=== PATIENT | male | born 1950 | race American Indian/Alaskan Native ===

== ENCOUNTER 2018-03-05 20:20 | Emergency (ER) | payer BC, MEDICARE ==
--- NOTE | 2018-03-05 22:28 | Cat Scan Report ---
FINAL REPORT PROCEDURE: CT HEAD/BRAIN WO CON TECHNIQUE: Computerized tomography of the head was performed without contrast material. HISTORY: Lg hematoma L eye s/p GLF COMPARISON: No prior studies are available for comparison. FINDINGS: Brain: There is no evidence of intracranial hemorrhage. No parenchymal hemorrhage is seen. No mass lesions or mass effect is identified. No abnormal extra-axial fluid collections or masses are seen. Nonspecific mineralization of the basal ganglia are visualized bilaterally. There is some decreased density seen in the periventricular white matter without mass effect. This i s fairly symmetric and does not exhibit any mass effect consistent with gliosis probably on the basis of microvascular disease or white matter changes of aging. Ventricles: The ventricles, sulcal pattern and fissures are prominent consistent with atrophy. Bones: No evidence of acute fracture. Large amount of soft tissue swelling seen overlying the left or bit and left side of the forehead. Large hematoma appears to be present. Paranasal sinuses: Visualized portions are clear. Mastoid air cells: clear IMPRESSION: Soft tissue swelling and hematoma formation seen overlying the left orbit and left side of the forehe ad. No evidence of intracranial hemorrhage or skull fracture. There is evidence of mild to moderate atrophy and mild gliosis.
--- NOTE | 2018-03-05 22:33 | Cat Scan Report ---
FINAL REPORT PROCEDURE: CT FACIAL BONES WO CON TECHNIQUE: Computerized tomography of the facial bones and soft tissues with axial and coronal secti ons performed from the cranial aspect of the frontal sinuses to the caudal portion of the mandible wi thout contrast material. HISTORY: Lg hematoma L eye s/p GLF COMPARISON: No prior studies are available for comparison. FINDINGS: No facial fractures are identified. The orbits, the nasal bone, the zygomas and zygomatic arches as w ell as the giraldo of the paranasal sinuses and mandible are intact. Large scalp hematoma and soft tiss ue swelling seen overlying the left orbit and left side of the forehead. No radiopaque foreign bodies are seen. Paranasal sinuses are clear. Calcifications are seen in the giraldo of the carotid arteries indicating atherosclerotic disease. There is advanced degenerative disc changes and facet arthritis partially visualized in the cervical spine. No fracture is identified. There is minimal anterior subluxation C2 in relation to C3, approxi mately 2.5 millimeters.. IMPRESSION: No facial fractures are identified. Large hematoma and soft tissue swelling seen overlying the left o rbit and left side of the forehead. Atherosclerosis carotid arteries. Advanced degenerative disc changes visualized upper cervical spine. The entire cervical spine is not visualized. No definite fracture is seen. There is minimal anterior subluxation C2 in relation to C3, approximately 2.5 millimeters.
--- NOTE | 2018-03-05 23:32 | Emergency Department Report ---
ED General Adult HPI - General Chief complaint: Fall Stated complaint: FALL LT FOREHEAD Time Seen by Provider: 03/05/18 23:04 Source: patient Mode of arrival: Ambulatory Limitations: No Limitations - History of Present Illness Initial comments: 68-year-old male with a history of hypertension and rheumatoid arthritis presents after suffering a ground-level fall after stating that he slipped on pine strawand fell to the ground. Patient also admits to alcohol use prior to this fall. Patient denies any other coingestants. Patient states that he had no chest pain, dizziness or shortness of breath prior to the fall. Patient states that he has no pain in his upper or lower extremities. Patient denies any neck pain. Patient denies any eye pain or visual loss. Patient states that fall occurred at 430 pm. Patient denies any other falls since that time and states that he currently feels fine. - Related Data Previous Rx's Medication Instructions Recorded Last Taken Type traMADol [Ultram] 50 mg PO Q6HR PRN #20 tablet 03/05/18 Unknown Rx Allergies Allergy/AdvReac Type Severity Reaction Status Date / Time No Known Allergies Allergy Unverified 03/05/18 20:46 ED Review of Systems ROS: Stated complaint: FALL LT FOREHEAD Other details as noted in HPI Constitutional: denies: chills, fever Eyes: denies: eye pain, eye discharge, vision change ENT: denies: ear pain, throat pain Respiratory: denies: cough, shortness of breath, wheezing Cardiovascular: denies: chest pain, palpitations Endocrine: no symptoms reported Gastrointestinal: denies: abdominal pain, nausea, diarrhea Genitourinary: denies: urgency, dysuria Musculoskeletal: denies: back pain, joint swelling, arthralgia Skin: denies: rash, lesions Neurological: headache Psychiatric: denies: anxiety, depression Hematological/Lymphatic: denies: easy bleeding, easy bruising ED Past Medical Hx - Past Medical History Previous Medical History?: Yes Hx Hypertension: Yes Hx Diabetes: Yes Hx Arthritis: Yes (rheumatoid) - Surgical History Past Surgical History?: No - Social History Smoking Status: Light Tobacco Smoker Substance Use Type: Alcohol, Marijuana - Medications Home Medications: Home Medications Medication Instructions Recorded Confirmed Last Taken Type traMADol [Ultram] 50 mg PO Q6HR PRN #20 tablet 03/05/18 Unknown Rx ED Physical Exam - General Limitations: No Limitations General appearance: alert, in no apparent distress - Head Head exam: Present: normocephalic, other (Swelling noted to Left Frontal Region of Head) - Eye Eye exam: Present: normal appearance, PERRL, EOMI, other (Visual acuity in left eye is 20/50; no pain to palpation of the orbit or eyelid region; NO hyphema). Absent: conjunctival injection Pupils: Present: normal accommodation - ENT ENT exam: Present: mucous membranes moist - Neck Neck exam: Present: normal inspection - Respiratory Respiratory exam: Present: normal lung sounds bilaterally. Absent: respiratory distress - Cardiovascular Cardiovascular Exam: Present: regular rate, normal rhythm. Absent: systolic murmur, diastolic murmur, rubs, gallop - GI/Abdominal GI/Abdominal exam: Present: soft, normal bowel sounds - Rectal Rectal exam: Present: deferred - Extremities Exam Extremities exam: Present: normal inspection - Back Exam Back exam: Present: normal inspection - Neurological Exam Neurological exam: Present: alert, oriented X3 - Psychiatric Psychiatric exam: Present: normal affect, normal mood - Skin Skin exam: Present: warm, dry, intact, normal color, other (abrasions noted to left head of metacarpal 2-4). Absent: rash ED Course Vital Signs 03/05/18 03/05/18 20:32 20:36 Temperature 98.7 F Pulse Rate 96 H Respiratory 18 18 Rate Blood Pressure 169/119 169/119 O2 Sat by Pulse 99 Oximetry ED Medical Decision Making - Medical Decision Making Using a Snellen chart patient's visual acuity is 20/50 in the left eye. Patient has no pain with extraocular movement. Patient currently is asymptomatic at then time. Patient called family to come and pick the patient up. Patient is fully conversational and is oriented to person place and time. Patient has had no vision loss and injury occurred at 430 pm today. Patient instructed to continue ice and we'll give him Ultram for when necessary pain relief. - Differential Diagnosis Intracranial Injury; Hemorrhage; Skull Fracture; Facial Fracture Critical care attestation.: If time is entered above; I have spent that time in minutes in the direct care of this critically ill patient, excluding procedure time. ED Disposition Clinical Impression: Scalp hematoma, Fall, Alcohol abuse Disposition: DC-01 TO HOME OR SELFCARE Is pt being admited?: No Condition: Stable Instructions: Contusion in Adults (ED), Fall Prevention (ED) Prescriptions: traMADol [Ultram] 50 mg PO Q6HR PRN #20 tablet PRN Reason: Pain Referrals: ANIKET CHEUNG MD [Primary Care Provider] - 3-5 Days Time of Disposition: 23:37 Print Language: BAHAMIAN
[2018-03-06 02:59] VITALS: BP 157/98
== END 2018-03-06 02:58 | disposition home or self-care (01) ==
LOC: ED 20:20
DX: S00.03XA Contusion of scalp, initial encounter (principal); I10 Essential (primary) hypertension; E11.9 Type 2 diabetes mellitus without complications; F17.200 Nicotine dependence, unspecified, uncomplicated; F12.10 Cannabis abuse, uncomplicated; W18.30XA Fall on same level, unspecified, initial encounter; Y93.89 Activity, other specified; Y92.89 Other specified places as the place of occurrence of the external cause; Y99.8 Other external cause status
CPT/HCPCS: 70450; 70486

== ENCOUNTER 2018-10-11 10:01 | Emergency (ER) | payer MEDICARE ==
--- NOTE | 2018-10-11 11:51 | Emergency Department Report ---
ED Fall HPI - General Chief Complaint: Fall Stated Complaint: POSS CONCUSION Time Seen by Provider: 10/11/18 11:16 Source: patient Mode of arrival: Ambulatory Limitations: No Limitations - History of Present Illness Initial Comments: 68-year-old male male with a past medical history rheumatoid arthritis, diet controlled diabetes, and hypertension presents to the hospital with complaints of frequent falls. Last fall was 3 weeks ago. At this time patient was on 6 different medications for his blood pressure. Patient states that the medication caused him to feel dizzy therefore he discontinue the medication 3 weeks ago. He has not followed up with his primary care doctor. He was not evaluated in the ED for this fall. He presents to the ER to be "checked out" due to the insistence of his family members. Patient denies any pain, shortness breath, or unsteady gait currently. - Related Data Previous Rx's Medication Instructions Recorded Last Taken Type traMADol [Ultram] 50 mg PO Q6HR PRN #20 tablet 03/05/18 Unknown Rx Allergies Allergy/AdvReac Type Severity Reaction Status Date / Time No Known Allergies Allergy Verified 10/11/18 10:03 ED Review of Systems ROS: Stated complaint: POSS CONCUSION Other details as noted in HPI Comment: All other systems reviewed and negative ED Past Medical Hx - Past Medical History Hx Hypertension: Yes Hx Diabetes: Yes Hx Arthritis: Yes (rheumatoid) - Social History Smoking Status: Current Every Day Smoker Substance Use Type: Alcohol - Medications Home Medications: Home Medications Medication Instructions Recorded Confirmed Last Taken Type traMADol [Ultram] 50 mg PO Q6HR PRN #20 tablet 03/05/18 Unknown Rx ED Physical Exam - General Limitations: No Limitations - Other Other exam information: General: No acute distress Head: Atraumatic Eyes: Normal appearance, Pupils equal and reactive to light, extraocular movements intact ENT: Normal oropharynx Neck: Normal appearance, no posterior or midline tenderness, no meningismus Chest: Clear to auscultation bilaterally, no wheezes, rales, or crackles CV: Regular rate and rhythm Abdomen: soft, normal bowel sounds, nontender, nondistended, no rebound or guarding Back: Nontender Extremity: Normal inspection, full range of motion, nontender Neuro: Alert and oriented 3, speech clear, no gross motor or sensory deficit, [id number] function intact, gait steady Skin: No rash, redness, warmth ED Course Vital Signs 10/11/18 10/11/18 10:10 13:37 Temperature 97.7 F Pulse Rate 84 88 Respiratory 16 16 Rate Blood Pressure 170/102 Blood Pressure 149/96 [Left] O2 Sat by Pulse 100 100 Oximetry ED Medical Decision Making - Lab Data Result diagrams: 10/11/18 12:14 10/11/18 12:14 Lab Results 10/11/18 10/11/18 10/11/18 Range/Units 11:53 12:14 12:14 WBC 2.7 L (4.5-11.0) K/mm3 RBC 3.49 L (3.65-5.03) M/mm3 Hgb 11.4 L (11.8-15.2) gm/dl Hct 33.6 L (35.5-45.6) % MCV 97 H (84-94) fl MCH 33 H (28-32) pg MCHC 34 (32-34) % RDW 15.9 H (13.2-15.2) % Plt Count 205 (140-440) K/mm3 Lymph % (Auto) 34.0 (13.4-35.0) % Bacon % (Auto) 10.3 H (0.0-7.3) % Eos % (Auto) 0.6 (0.0-4.3) % Baso % (Auto) 1.3 (0.0-1.8) % Lymph # 0.9 L (1.2-5.4) K/mm3 Bacon # 0.3 (0.0-0.8) K/mm3 Eos # 0.0 (0.0-0.4) K/mm3 Baso # 0.0 (0.0-0.1) K/mm3 Seg Neutrophils % 53.8 (40.0-70.0) % Seg Neutrophils # 1.5 L (1.8-7.7) K/mm3 Sodium 141 (137-145) mmol/L Potassium 4.7 (3.6-5.0) mmol/L Chloride 100.1 (98-107) mmol/L Carbon Dioxide 26 (22-30) mmol/L Anion Gap 20 mmol/L BUN 13 (9-20) mg/dL Creatinine 0.6 L (0.8-1.5) mg/dL Estimated GFR > 60 ml/min BUN/Creatinine Ratio 22 % Glucose 71 L (75-100) mg/dL Calcium 9.5 (8.4-10.2) mg/dL Total Bilirubin 0.60 (0.1-1.2) mg/dL AST 56 H (5-40) units/L ALT 24 (7-56) units/L Alkaline Phosphatase 95 (35-129) units/L Total Protein 8.0 (6.3-8.2) g/dL Albumin 4.5 (3.9-5) g/dL Albumin/Globulin Ratio 1.3 % Urine Color Yellow (Yellow) Urine Turbidity Clear (Clear) Urine pH 6.0 (5.0-7.0) Ur Specific [place] 1.009 (1.003-1.030) Urine Protein <15 mg/dl (Negative) mg/dL Urine Glucose (UA) Neg (Negative) mg/dL Urine Ketones Neg (Negative) mg/dL Urine Blood Neg (Negative) Urine Nitrite Neg (Negative) Urine Bilirubin Neg (Negative) Urine Urobilinogen < 2.0 (<2.0) mg/dL Ur Leukocyte Esterase Neg (Negative) Urine WBC (Auto) < 1.0 (0.0-6.0) /HPF Urine RBC (Auto) 1.0 (0.0-6.0) /HPF - Radiology Data Radiology results: report reviewed CT head/brain wo con INDICATION: frequent falls. TECHNIQUE: Routine CT head without contrast. All CT scans at this location are performed using CT dose reduction for ALARA by means of automated exposure control. COMPARISON: Head CT dated 03/05/2018. FINDINGS: BRAIN / INTRACRANIAL CONTENTS: No acute hemorrhage, mass effect, midline shift, or hydrocephalus. No appreciable acute large territo rial or lacunar infarct. There is stable mild brain parenchymal volume loss with generalized mild ventricular and cisternal prominence. There is stable mild chronic microvascular angiopathic change in the deep cerebral white matter. ORBITS: Previous bilateral lens replacement noted. SINUSES / MASTOIDS: No significant abnormality of visualized sinuses and mastoid air cells. ADDITIONAL FINDINGS: None. IMPRESSION: 1. No acute intracranial abnormality. No adverse change from the prior exam. - Medical Decision Making ed workup unremarkable pt asymptomatic with steady gait bp improved without meds f/u with pmd encouraged. pt plans to f/u soon copy of labs and ct will be provided for pmd f/u - Differential Diagnosis dehydration, infection, intracranial lesion, medication reaction Critical Care Time: No Critical care attestation.: If time is entered above; I have spent that time in minutes in the direct care of this critically ill patient, excluding procedure time. ED Disposition Clinical Impression: Fall, HTN (hypertension), Noncompliance with medication regimen Disposition: TO HOME OR SELFCARE Is pt being admited?: No Does the pt Need Aspirin: No Condition: Stable Instructions: Hypertension (ED), Fall Prevention for Older Adults (ED) Additional Instructions: Take the medication as prescribed. Follow-up with your doctor or the doctor/clinic provided. Return is symptoms worsen as indicated by your discharge instructions. Referrals: your, primary care doctor [Other] - 2-3 Days SEDGWICK GARY SANTIAGO MD [Primary Care Provider] - 2-3 Days Time of Disposition: 13:44
[2018-10-11 12:08] LABS: Bilirubin,Urine NEG (Negative); Blood,Urine NEG (Negative); Color,Urine Yellow (Yellow); Protein,Urine <15 mg/dL mg/dL (Negative); Urobilinogen,Urine < 2.0 mg/dL (<2.0); WBC,Urine < 1.0 /HPF (0.0-6.0)
[2018-10-11 12:38] LABS: Basophils % (Auto) 1.3 % (0.0-1.8); Eosinophils % (Auto) 0.6 % (0.0-4.3); Hematocrit 33.6 % (35.5-45.6); Hemoglobin 11.4 gm/dl (11.8-15.2); Lymphocytes # (Auto) 0.9 K/mm3 (1.2-5.4); Mean Corpuscular HGB Conc 34 % (32-34); Mean Corpuscular Volume 97 fl (84-94); Monocytes # (Auto) 0.3 K/mm3 (0.0-0.8); Monocytes % (Auto) 10.3 % (0.0-7.3); Platelet Count 205 K/mm3 (140-440); Red Blood Count 3.49 M/mm3 (3.65-5.03); Red Cell Distribution Width 15.9 % (13.2-15.2)
[2018-10-11 12:52] LABS: Alanine Aminotransferase 24 units/L (7-56); Albumin 4.5 g/dL (3.9-5); BUN/Creatinine Ratio 22; Blood Urea Nitrogen 13 mg/dL (9-20); Calcium 9.5 mg/dL (8.4-10.2); Hemolysis Index 9
--- NOTE | 2018-10-11 13:25 | Cat Scan Report ---
CT head/brain wo con INDICATION: frequent falls. TECHNIQUE: Routine CT head without contrast. All CT scans at this location are performed using CT dos e reduction for ALARA by means of automated exposure control. COMPARISON: Head CT dated 03/05/2018. FINDINGS: BRAIN / INTRACRANIAL CONTENTS: No acute hemorrhage, mass effect, midline shift, or hydrocephalus. No appreciable acute large territorial or lacunar infarct. There is stable mild brain parenchymal volume loss with generalized mild ventricular and cisternal prominence. There is stable mild chronic microv ascular angiopathic change in the deep cerebral white matter. ORBITS: Previous bilateral lens replacement noted. SINUSES / MASTOIDS: No significant abnormality of visualized sinuses and mastoid air cells. ADDITIONAL FINDINGS: None. IMPRESSION: 1. No acute intracranial abnormality. No adverse change from the prior exam. Signer Name: Alexi Martini MD Signed: 10/11/2018 1:20 PM Workstation Name: [id number]
[2018-10-11 13:38] VITALS: BP 149/96
== END 2018-10-11 14:26 | disposition home or self-care (01) ==
LOC: ED 10:01
DX: I10 Essential (primary) hypertension (principal); R42 Dizziness and giddiness; E11.9 Type 2 diabetes mellitus without complications; M06.9 Rheumatoid arthritis, unspecified; F17.200 Nicotine dependence, unspecified, uncomplicated; W19.XXXA Unspecified fall, initial encounter; Z91.81 History of falling; Y93.89 Activity, other specified; Y92.89 Other specified places as the place of occurrence of the external cause; Y99.8 Other external cause status
CPT/HCPCS: 36415; 70450; 80053; 81001; 85025